=== PATIENT | male | born 1960 | race African-American/Black ===

== ENCOUNTER 2017-06-09 13:22 | Emergency (ER) | payer OTHER ==
[~2017-06-09] VITALS: Ht 177.8 cm; Wt 87.3 kg
[2017-06-09] MEDS ORDERED: NAPROXEN500 MG PO (14:58)
[2017-06-09 16:23] VITALS: BP 138/99
== END 2017-06-09 16:28 | disposition home or self-care (01) ==
LOC: EME 13:22
PROC: 2W3KX1Z Immobilization of Left Finger using Splint (ICD-10-PCS; principal; 2017-06-09)
DX: M67.432 Ganglion, left wrist (principal); M65.342 Trigger finger, left ring finger; F17.200 Nicotine dependence, unspecified, uncomplicated; Z88.5 Allergy status to narcotic agent
CPT/HCPCS: 73130; 99281; 99284